=== PATIENT | female | born 1985 | race Caucasian/White ===

== ENCOUNTER 2017-01-17 05:57 | Emergency (ER) | payer MEDICAID ==
[2017-01-17 06:26] VITALS: TEMP 97.5; O2SAT 100
[2017-01-17] MEDS ORDERED: Morphine 4 MG/ML VIAL IVP ONE (06:38)
[2017-01-17] MEDS ORDERED: Sodium Chloride 0.9% 1,000 ML IV STA (06:38)
[2017-01-17] MEDS ORDERED: Morphine 4 MG/ML VIAL ONE (06:44)
[2017-01-17 07:13] LABS: RBC URINE 7 /hpf (0-3); URINE BILIRUBIN NEGATIVE (NEGATIVE); URINE BLOOD SMALL (NEGATIVE); URINE COLOR YELLOW (YELLOW); URINE GLUCOSE (UA) NEG (Normal); URINE KETONE NEGATIVE (NEGATIVE); URINE LEUKOCYTE ESTERASE NEG Leu/uL (Negative); URINE PROTEIN NEGATIVE (NEGATIVE); URINE UROBILINOGEN 0.2-1.0 mg/dL (0.2-1.0); WBC URINE < 1 /hpf (0-5)
[2017-01-17 07:14] LABS: BASO # 0.1 K/uL (0.0-0.2); BASO % 0.6 % (0.0-2.0); EOS # 0.3 K/uL (0.0-0.7); EOS % 1.9 % (0.0-4.0); HEMATOCRIT 39.9 % (34.0-47.0); LYMPH % 14.6 % (20.0-40.0); MEAN CELL VOLUME 98.6 fl (81.0-99.0); MEAN CORPUSCULAR HEMOGLOBIN 32.6 pg (27.0-31.0); MEAN CORPUSCULAR HGB CONC 33.1 g/dL (33.0-37.0); MEAN PLATELET VOLUME 10.2 fl (7.2-11.7); MONO # 0.6 K/uL (0.0-0.8); MONO % 4.2 % (0.0-10.0); NEUT # 10.6 K/uL (1.8-7.0); NEUT % 78.7 % (50.0-75.0); RED CELL DISTRIBUTION WIDTH 12.3 % (11.5-14.5); WHITE BLOOD COUNT 13.4 K/uL (4.8-10.8)
[2017-01-17 07:25] LABS: ALB/GLOB RATIO 1.2 (1.0-2.1); ALKALINE PHOSPHATASE 39 U/L (38-126); ALT/SGPT 25 U/L (9-52); AST/SGOT 18 U/L (14-36); BILIRUBIN,TOTAL 1.1 mg/dl (0.2-1.3); BLOOD UREA NITROGEN 14 mg/dl (7-17); CALCIUM 8.7 mg/dL (8.4-10.2); CARBON DIOXIDE 22 mmol/L (22-30); CHLORIDE 112 mmol/L (98-107); GFR AFRICAN-AMERICAN > 60; GLUCOSE,RANDOM 91 mg/dL (65-105); LIPASE 66 U/L (23-300); SODIUM 140 mmol/l (132-148)
--- NOTE | 2017-01-17 07:25 | ED PDOC ---
HPI: Abdomen Time Seen by Provider: 01/17/17 06:13 Chief Complaint (Nursing): Abdominal Pain Chief Complaint (Provider): Abdominal Pain History Per: Patient History/Exam Limitations: no limitations Onset/Duration Of Symptoms: Days (x1) Outside of [place] travel?: No Current Symptoms Are (Timing): Still Present Associated Symptoms: denies: Nausea, Vomiting, Diarrhea Exacerbating Factors: None Alleviating Factors: None Additional Complaint(s): Martina Torre, a 31 year old female, presents to the ED complaining of abdominal pain that radiates to her back x1 day. The patient reports that she developed an abnormal menstrual cycle associated with severe cramping. She reports that the cramps are the worst she has ever experienced. Denies nausea, vomiting, diarrhea. patient reports that she took ibuprofen around 8pm which offered no relief. PMD: Shaik Ferguson Past Medical History Reviewed: Historical Data, Nursing Documentation, Vital Signs Vital Signs: Last Vital Signs Temp 97.5 F L 01/17/17 06:22 Pulse 81 01/17/17 07:30 Resp 14 01/17/17 07:30 BP 121/75 01/17/17 07:30 Pulse Ox 100 01/17/17 21:25 - Medical History PMH: No Chronic Diseases - Surgical History Other surgeries: Ankle surgery bilaterally - Family History Family History: States: No Known Family Hx - Social History Current smoker - smoking cessation education provided: No Ex-Smoker (has not smoked in the last 12 months): No Alcohol: None Drugs: Denies - Immunization History Hx Tetanus Toxoid Vaccination: No Hx Influenza Vaccination: Yes Hx Pneumococcal Vaccination: No - Home Medications Home Medications: Ambulatory Orders Medication Instructions Recorded APAP/Dm Hydrobrom/Pse HCl/Py 10 ml PO HS #0 liq 05/01/13 [Robitussin Night Relief 240 ml] Famotidine [Pepcid] 1 tab PO HS #20 tab 05/01/13 Ibuprofen [Advil] 600 mg PO Q6H #20 tab 05/01/13 Oxycodone HCl/Acetaminophen 1 tab PO Q4 #5 tab 06/04/14 [Percocet 325 mg-5 mg] Naproxen [Naprosyn] 500 mg PO BID PRN #20 tablet 01/17/17 - Allergies Allergies/Adverse Reactions: Allergies Allergy/AdvReac Type Severity Reaction Status Date / Time No Known Allergies Allergy Verified 01/17/17 06:24 Review of Systems ROS Statement: Except As Marked, All Systems Reviewed And Found Negative Gastrointestinal: Positive for: Abdominal Pain. Negative for: Nausea, Vomiting , Diarrhea Physical Exam - Reviewed Nursing Documentation Reviewed: Yes Vital Signs Reviewed: Yes - Physical Exam Appears: Positive for: Uncomfortable Head Exam: Positive for: ATRAUMATIC, NORMAL INSPECTION, NORMOCEPHALIC Skin: Positive for: Normal Color, Warm, Dry. Negative for: Rash Eye Exam: Positive for: Normal appearance, EOMI, PERRL. Negative for: Nystagmus ENT: Positive for: Normal ENT Inspection. Negative for: Nasal Congestion, Tonsillar Exudate, Tonsillar Swelling Neck: Positive for: Normal, Painless ROM, Supple Cardiovascular/Chest: Positive for: Regular Rate, Rhythm, Chest Non Tender. Negative for: Tachycardia Respiratory: Positive for: Normal Breath Sounds. Negative for: Rales, Rhonchi, Wheezing, Respiratory Distress Gastrointestinal/Abdominal: Positive for: Bowel Sounds, Soft, Tenderness (lower abdominal tenderness.). Negative for: Guarding, Rebound Back: Positive for: Normal Inspection. Negative for: L CVA Tenderness, R CVA Tenderness Extremity: Positive for: Normal ROM. Negative for: Tenderness, Pedal Edema, Deformity, Swelling Neurologic/Psych: Positive for: Alert, Oriented, Gait - Laboratory Results Result Diagrams: 01/17/17 07:00 01/17/17 07:00 - ECG O2 Sat by Pulse Oximetry: 100 (RA) Pulse Ox Interpretation: Normal Medical Decision Making Medical Decision Makin Initial Impression 31 y/o female presenting with abdominal cramping in setting of menstrual cramps Initial Plan: * CMP * Lipase * Upreg * Udip * Morphine 4mg * NS 1000mls IV 1000mls/hr * Urinalysis * US Pelvis/transvaginal * Reevaluation Patient signed out to DR. Camilo at 0700 pending Ultra sound and labs. Scribe Attestation Documented by Diann Wasserman acting as a scribe for Geovanny Coello MD. Provider Attestation All medical record entries made by the Scribe were at my direction and personally dictated by me. I have reviewed the chart and agree that the record accurately reflects my personal performance of the history, physical exam, medical decision making, and the department course for this patient. I have also personally directed, reviewed, and agree with the discharge instructions and disposition. Disposition - Clinical Impression Clinical Impression: Abdominal pain in female - Patient ED Disposition Is Patient to be Admitted: Transfer of Care - Disposition Disposition: Transfer of Care Disposition Time: 07:00 Condition: FAIR Additional Instructions: stop ibuprofen while you are taking Naprosyn prescribed in the ER. See Dr. White within 1-2 weeks after discharge. Prescriptions: Naproxen [Naprosyn] 500 mg PO BID PRN #20 tablet PRN Reason: Pain, Moderate (4-7) Patient Signed Over To: Emmy Camilo Present On Arrival: None
--- NOTE | 2017-01-17 07:29 | ED PDOC ---
- Laboratory Results Result Diagrams: 01/17/17 07:00 01/17/17 07:00 - ECG O2 Sat by Pulse Oximetry: 100 Medical Decision Making Medical Decision Making: received patient from Dr. Coello. Patient has severe abdominal after onset of menses. Morphine given. Labs and US pending. Disposition Doctor Will See Patient In The: Office Counseled Patient/Family Regarding: Diagnosis, Need For Followup - Clinical Impression Clinical Impression: Dysmenorrhea - POA Present On Arrival: None - Disposition Referrals: Gideon Cazares MD [Staff Provider] - Disposition: Routine/Home Disposition Time: 12:27 Condition: STABLE Additional Instructions: stop ibuprofen while you are taking Naprosyn prescribed in the ER. See Dr. White within 1-2 weeks after discharge. Prescriptions: Naproxen [Naprosyn] 500 mg PO BID PRN #20 tablet PRN Reason: Pain, Moderate (4-7) Instructions: Dysmenorrhea (ED) Forms: [employer] (Macedonian)
--- NOTE | 2017-01-17 12:16 | US ---
PROCEDURE: Pelvic ultrasound 01/17/2017. HISTORY: severe abd pain in menstruation COMPARISON: No prior study available for comparison TECHNIQUE: Transabdominal/transvaginal sonographic evaluation of the pelvis performed. FINDINGS: The uterus is anteverted measuring approximate 8.5 x 6.0 x 5.3. . There is an approximately 2.7 x 2.1 x 2.4 cm fibroid along the posterior fundal region. Endometrial stripe measures 3.4 mm. . Tiny amount of fluid within the endometrial canal is felt to be present. . Cervix measures approximately 3 4 the 0 cm. Right ovary measures approximately 3.1 x 3.3 x 2.0 and contains a small cyst measuring 2.3 x 1.5 x 2.4 cm. Right ovary exhibits arterial flow. Left ovary measures approximately 2.1 x 2.7 x 1.9 cm and also contains a small cyst and/or prominent follicle that measures approximately 1.2 cm in greatest dimension. . Left ovary exhibits arterial flow. IMPRESSION: Small uterine fibroid as above. Small right adnexal cyst with prominent left ovarian follicle or small cyst.
[2017-01-17 12:38] VITALS: BP 121/75; PULSE 81; RESP 14
== END 2017-01-17 12:36 | disposition home or self-care (01) ==
LOC: H.ER 05:57
DX: N94.6 Dysmenorrhea, unspecified (principal); D25.9 Leiomyoma of uterus, unspecified
CPT/HCPCS: 76830; 76856; 80053; 81003; 81025; 83690; 85025; 96374; 99283; J1885; J2270; J7040

== ENCOUNTER 2017-06-08 07:26 | Emergency (ER) | payer MEDICAID ==
[2017-06-08 07:30] VITALS: BMI 29.2
--- NOTE | 2017-06-08 09:30 | ED PDOC ---
HPI: Abdomen Time Seen by Provider: 06/08/17 07:40 Chief Complaint (Nursing): Abdominal Pain Chief Complaint (Provider): Abdominal pain History/Exam Limitations: no limitations Onset/Duration Of Symptoms: Days Current Symptoms Are (Timing): Still Present Location Of Pain/Discomfort: Suprapubic Quality Of Discomfort: Cramping Additional Complaint(s): Martina Torre is a 31 year old female, with a past medical history of fibroids and ovarian cysts, who presents to the emergency department complaining of crampy abdominal pain. Patient states she is just having severe cramping pain from her menstrual cycle. She also reports that x3 months ago she started taking Percocet every day due to an ankle surgery, patient stopped taking Percocet x3 days ago and believes to be having withdrawal symptoms. She denies any other medical complaints. PMD: None provided. Past Medical History Reviewed: Historical Data, Nursing Documentation, Vital Signs Vital Signs: Last Vital Signs Temp 97 F L 06/08/17 10:54 Pulse 78 06/08/17 10:54 Resp 19 06/08/17 10:54 BP 120/78 06/08/17 10:54 Pulse Ox 98 06/08/17 10:54 - Medical History PMH: No Chronic Diseases - Surgical History Surgical History: No Surg Hx - Family History Family History: States: No Known Family Hx - Social History Current smoker - smoking cessation education provided: No Alcohol: None Drugs: Denies - Immunization History Hx Tetanus Toxoid Vaccination: No Hx Influenza Vaccination: Yes Hx Pneumococcal Vaccination: No - Home Medications Home Medications: Ambulatory Orders Medication Instructions Recorded No Known Home Med 06/09/17 - Allergies Allergies/Adverse Reactions: Allergies Allergy/AdvReac Type Severity Reaction Status Date / Time No Known Allergies Allergy Verified 01/17/17 06:24 Review of Systems ROS Statement: Except As Marked, All Systems Reviewed And Found Negative Gastrointestinal: Positive for: Abdominal Pain (cramps) Physical Exam - Reviewed Nursing Documentation Reviewed: Yes Vital Signs Reviewed: Yes - Physical Exam Appears: Positive for: Well, Non-toxic, No Acute Distress Head Exam: Positive for: ATRAUMATIC, NORMOCEPHALIC Skin: Positive for: Normal Color, Warm, Dry Eye Exam: Positive for: Normal appearance, EOMI, PERRL Neck: Positive for: Painless ROM, Supple Cardiovascular/Chest: Positive for: Regular Rate, Rhythm. Negative for: Murmur Respiratory: Positive for: Normal Breath Sounds. Negative for: Respiratory Distress Gastrointestinal/Abdominal: Positive for: Tenderness (mild suprapubic) Back: Positive for: Normal Inspection. Negative for: L CVA Tenderness, R CVA Tenderness, Vertebral Tenderness Extremity: Positive for: Normal ROM (all extremities). Negative for: Deformity , Swelling Neurologic/Psych: Positive for: Alert, Oriented - ECG O2 Sat by Pulse Oximetry: 100 (RA) Pulse Ox Interpretation: Normal Medical Decision Making Medical Decision Making: Initial Impression: abdominal pain Initial Plan: --Drug screen, urine --Urine dipstick --Urine --Toradol 30 mg IM --Pelvis/Transvag US [US] --Reevaluation Accession No. : [id number] Patient Name / ID : HARISH SALAZAR / [id number] Exam Date : 06/08/2017 09:32:11 ( Approved ) Study Comment : Sex / Age : F / 31Y Creator : Leonel Russ MD Dictator : Leonel Russ MD Lead Neurodiagnostic Technologist : Kiln Charger : Leonel Russ MD Approver2 : Report Date : 06/08/2017 10:42:59 My Comment : HISTORY: Suprapubic pain, h/o fibroids. Menstrual status: LMP 06/08/2017 COMPARISON: 01/17/2017 pelvic ultrasound TECHNIQUE: Transvaginal only. Real -time technique with 2D, duplex and color Doppler FINDINGS: UTERUS: Measures 4.8 x 6.7 x 8 cm. Normal in size and appearance. Fundal fibroid (Midline) 2.7 x 3.1 cm. Anterior fibroid to the left midline 1.5 x 1.5 cm ENDOMETRIUM: Measures 2.5 mm in diameter. No ultrasound findings to suggest gestational sac, fluid, debris, mass or polyp or other pathologic process within the endometrium. CERVIX: No cervical abnormality identified. RIGHT OVARY: Measures 1.8 x 2.5 x 3.6 cm. No solid mass. Normal flow. Multiple subcentimeter follicles. LEFT OVARY: Measures 2.5 x 3.1 x 2.4 cm. No solid mass. Normal flow. Multiple subcentimeter follicles. FREE FLUID: Trace free fluid identified in the pelvis/cul de sac. OTHER FINDINGS: None. IMPRESSION: No acute findings related to/accounting for the clinical presentation. Two small uterine fibroids. No significant change compared prior studies. Scribe Attestation: Documented by Say Richardson, acting as a scribe for Ashley Marin MD Provider Scribe Attestation: All medical record entries made by the Scribe were at my direction and personally dictated by me. I have reviewed the chart and agree that the record accurately reflects my personal performance of the history, physical exam, medical decision making, and the department course for this patient. I have also personally directed, reviewed, and agree with the discharge instructions and disposition. Disposition - Clinical Impression Clinical Impression: Menstrual cramp - Disposition Referrals: [facility] [Outside] Disposition: Routine/Home Disposition Time: 10:34 Condition: STABLE Instructions: Menstrual Cramps Forms: [employer] (Rwandan)
[2017-06-08 09:43] LABS: BARBITURATES, UR NEGATIVE (NEGATIVE); BENZODIAZEPINES, UR NEGATIVE (NEGATIVE); OPIATES, UR POSITIVE (NEGATIVE); PHENCYCLIDINE, UR NEGATIVE (NEGATIVE)
--- NOTE | 2017-06-08 10:44 | US ---
HISTORY: Suprapubic pain, h/o fibroids. Menstrual status: LMP 06/08/2017 COMPARISON: 01/17/2017 pelvic ultrasound TECHNIQUE: Transvaginal only. Real -time technique with 2D, duplex and color Doppler FINDINGS: UTERUS: Measures 4.8 x 6.7 x 8 cm. Normal in size and appearance. Fundal fibroid (Midline) 2.7 x 3.1 cm. Anterior fibroid to the left midline 1.5 x 1.5 cm ENDOMETRIUM: Measures 2.5 mm in diameter. No ultrasound findings to suggest gestational sac, fluid, debris, mass or polyp or other pathologic process within the endometrium. CERVIX: No cervical abnormality identified. RIGHT OVARY: Measures 1.8 x 2.5 x 3.6 cm. No solid mass. Normal flow. Multiple subcentimeter follicles. LEFT OVARY: Measures 2.5 x 3.1 x 2.4 cm. No solid mass. Normal flow. Multiple subcentimeter follicles. FREE FLUID: Trace free fluid identified in the pelvis/cul de sac. OTHER FINDINGS: None. IMPRESSION: No acute findings related to/accounting for the clinical presentation. Two small uterine fibroids. No significant change compared prior studies.
[2017-06-08 10:56] VITALS: BP 120/78; PULSE 78; RESP 19; TEMP 97
[2017-06-15 16:37] VITALS: O2SAT 100
== END 2017-06-08 10:57 | disposition home or self-care (01) ==
LOC: H.ER 07:26
DX: N94.6 Dysmenorrhea, unspecified (principal); D25.9 Leiomyoma of uterus, unspecified
CPT/HCPCS: 76830; 80324; 80345; 80346; 80349; 80353; 80358; 80361; 81025; 83992; 96372; 99283; J1885

== ENCOUNTER 2017-08-04 07:35 | Emergency (ER) | payer MEDICAID ==
[2017-08-04 07:40] VITALS: TEMP 98
[2017-08-04 07:41] VITALS: BMI 25.0
[2017-08-04] MEDS ORDERED: Sodium Chloride 0.9% 1,000 ML IV STA (07:50)
--- NOTE | 2017-08-04 07:56 | ED PDOC ---
HPI: Abdomen Time Seen by Provider: 08/04/17 07:47 Chief Complaint (Provider): Abdominal Cramping History Per: Patient History/Exam Limitations: no limitations Onset/Duration Of Symptoms: Hrs Outside of [place] travel?: No Current Symptoms Are (Timing): Still Present Quality Of Discomfort: Cramping Associated Symptoms: denies: Nausea, Vomiting, Diarrhea, Urinary Symptoms Exacerbating Factors: None Alleviating Factors: None Additional Complaint(s): 31 year old female presents to the emergency department complaining of abdominal cramping that radiates to her back associated with nausea and vomiting which began this morning. Denies diarrhea and urinary symptoms. She further reports that she stated her menses this morning and usually has severe pain during periods. Abnormal Vaginal Bleeding: No Last Menstral Period: 08/04/2017 Past Medical History Reviewed: Historical Data, Nursing Documentation, Vital Signs Vital Signs: Last Vital Signs Temp 98 F 08/04/17 07:40 Pulse 64 08/04/17 07:40 Resp 17 08/04/17 08:24 BP 145/83 08/04/17 07:40 Pulse Ox 98 08/04/17 08:01 - Medical History PMH: No Chronic Diseases - Surgical History Surgical History: No Surg Hx - Family History Family History: States: Unknown Family Hx - Immunization History Hx Tetanus Toxoid Vaccination: No Hx Influenza Vaccination: Yes Hx Pneumococcal Vaccination: No - Home Medications Home Medications: Ambulatory Orders Medication Instructions Recorded Naproxen [Naprosyn] 500 mg PO Q12H #20 tab 08/04/17 Ondansetron [Zofran] 4 mg PO Q8H #10 tab 08/04/17 - Allergies Allergies/Adverse Reactions: Allergies Allergy/AdvReac Type Severity Reaction Status Date / Time No Known Allergies Allergy Verified 08/04/17 07:59 Review of Systems ROS Statement: Except As Marked, All Systems Reviewed And Found Negative Gastrointestinal: Positive for: Nausea, Vomiting, Abdominal Pain (cramping) Genitourinary Female: Negative for: Vaginal Discharge, Vaginal Bleeding Physical Exam - Reviewed Nursing Documentation Reviewed: Yes Vital Signs Reviewed: Yes - Physical Exam Appears: Positive for: Non-toxic, No Acute Distress Head Exam: Positive for: ATRAUMATIC, NORMAL INSPECTION, NORMOCEPHALIC Skin: Positive for: Normal Color, Warm, Dry. Negative for: Rash Eye Exam: Positive for: Normal appearance, EOMI, PERRL. Negative for: Nystagmus ENT: Positive for: Normal ENT Inspection. Negative for: Nasal Congestion, Tonsillar Exudate, Tonsillar Swelling Neck: Positive for: Normal, Painless ROM, Supple Cardiovascular/Chest: Positive for: Regular Rate, Rhythm, Chest Non Tender. Negative for: Tachycardia Respiratory: Positive for: Normal Breath Sounds. Negative for: Rales, Rhonchi, Wheezing, Respiratory Distress Gastrointestinal/Abdominal: Positive for: Bowel Sounds, Soft, Tenderness (mild tenderness to lower quadrant bilaterally). Negative for: Mass, Guarding, Rebound Back: Positive for: Normal Inspection. Negative for: L CVA Tenderness, R CVA Tenderness Extremity: Positive for: Normal ROM. Negative for: Tenderness, Calf Tenderness , Deformity, Swelling Neurologic/Psych: Positive for: Alert, Oriented, Gait. Negative for: Motor/ Sensory Deficits - Laboratory Results Result Diagrams: 08/04/17 08:05 08/04/17 08:05 - ECG O2 Sat by Pulse Oximetry: 98 (RA) Pulse Ox Interpretation: Normal - Progress Re-evaluation Time: 10:05 Condition: Improved Medical Decision Making Medical Decision Makin Initial Impression 31 year old female presenting with abdominal cramping Initial Plan: * CMP * Upreg * Udip * CBC * NS 1000 mls IV 1000 mls/hr * Toradol 30mg IVP * Zofran 4mg IV * Reevaluation Documented by Diann Wasserman acting as a scribe for Gideon Muñiz MD. All medical record entries made by the Scribe were at my direction and personally dictated by me. I have reviewed the chart and agree that the record accurately reflects my personal performance of the history, physical exam, medical decision making, and the department course for this patient. I have also personally directed, reviewed, and agree with the discharge instructions and disposition. Disposition - Clinical Impression Clinical Impression: Dysmenorrhea - Patient ED Disposition Is Patient to be Admitted: No Counseled Patient/Family Regarding: Diagnosis, Need For Followup, Rx Given - [facility]position [facility] Disposition: Routine/Home Disposition Time: 10:06 Condition: FAIR Prescriptions: Naproxen [Naprosyn] 500 mg PO Q12H #20 tab Ondansetron [Zofran] 4 mg PO Q8H #10 tab Instructions: Menstrual Cramps (DC)
[2017-08-04 08:14] LABS: BASO # 0.1 K/uL (0.0-0.2); BASO % 0.4 % (0.0-2.0); EOS # 0.3 K/uL (0.0-0.7); EOS % 1.8 % (0.0-4.0); HEMOGLOBIN 13.9 g/dL (12.0-16.0); LYMPH # 2.6 K/uL (1.0-4.3); MEAN CELL VOLUME 97.3 fl (81.0-99.0); MEAN CORPUSCULAR HEMOGLOBIN 33.2 pg (27.0-31.0); MEAN CORPUSCULAR HGB CONC 34.1 g/dL (33.0-37.0); MEAN PLATELET VOLUME 9.2 fl (7.2-11.7); MONO # 0.7 K/uL (0.0-0.8); MONO % 4.7 % (0.0-10.0); NEUT % 75.1 % (50.0-75.0); RBC 4.18 Mil/uL (3.80-5.20); RED CELL DISTRIBUTION WIDTH 12.5 % (11.5-14.5); WHITE BLOOD COUNT 14.6 K/uL (4.8-10.8)
[2017-08-04 08:25] LABS: ALB/GLOB RATIO 1.1 (1.0-2.1); ALBUMIN 4.3 g/dL (3.5-5.0); ALT/SGPT 23 U/L (9-52); AST/SGOT 23 U/L (14-36); BLOOD UREA NITROGEN 14 mg/dl (7-17); CALCIUM 9.3 mg/dL (8.4-10.2); GFR AFRICAN-AMERICAN > 60; GFR NON-AFRICAN AMERICAN > 60
[2017-08-04] MEDS ORDERED: Potassium Chloride 20 mEq ER Tab PO ONE ×2 (09:24→09:30)
[2017-08-04 10:58] VITALS: BP 118/74; PULSE 60; RESP 14; O2SAT 99
== END 2017-08-04 10:37 | disposition home or self-care (01) ==
LOC: H.ER 07:35
DX: N94.6 Dysmenorrhea, unspecified (principal)
CPT/HCPCS: 80053; 85025; 96374; 96375; 99283; J1885; J2270; J2405; J7030

== ENCOUNTER 2018-03-16 05:26 | Emergency (ER) | payer MEDICAID ==
[2018-03-16 05:26] VITALS: BMI 25.0
[2018-03-16 05:45] VITALS: RESP 16
[2018-03-16] MEDS ORDERED: Sodium Chloride 0.9% 1,000 ML IV STA (05:56)
[2018-03-16 06:21] LABS: BASO % 0.4 % (0.0-2.0); EOS # 0.2 K/uL (0.0-0.7); EOS % 1.3 % (0.0-4.0); HEMOGLOBIN 13.1 g/dL (12.0-16.0); LYMPH # 1.9 K/uL (1.0-4.3); LYMPH % 16.3 % (20.0-40.0); MEAN CELL VOLUME 98.9 fl (81.0-99.0); MEAN CORPUSCULAR HEMOGLOBIN 33.7 pg (27.0-31.0); MEAN PLATELET VOLUME 8.7 fl (7.2-11.7); MONO # 0.5 K/uL (0.0-0.8); MONO % 4.3 % (0.0-10.0); NEUT # 8.9 K/uL (1.8-7.0); NEUT % 77.7 % (50.0-75.0); RBC 3.9 Mil/uL (3.80-5.20); RED CELL DISTRIBUTION WIDTH 13.2 % (11.5-14.5); WHITE BLOOD COUNT 11.4 K/uL (4.8-10.8)
--- NOTE | 2018-03-16 06:28 | ED PDOC ---
HPI: Abdomen Time Seen by Provider: 03/16/18 05:53 Chief Complaint (Nursing): Abdominal Pain Chief Complaint (Provider): Abdominal Pain History Per: Patient History/Exam Limitations: no limitations Onset/Duration Of Symptoms: Days (x2) Location Of Pain/Discomfort: Suprapubic Associated Symptoms: Vomiting. denies: Fever, Diarrhea, Urinary Symptoms Additional Complaint(s): 32 years old female presents to ER for evaluation of suprapubic abdominal pain onset 2 days ago. Patient reports she had similar episodes of abdominal pain in the past 4 months when she is on her period. She reports associated vomiting and denies fever, diarrhea, pain with urinating or taking any medicine for pain. PMD: Saeid Thacker Past Medical History Reviewed: Historical Data, Nursing Documentation, Vital Signs Vital Signs: Last Vital Signs Temp 98.2 F 03/16/18 05:35 Pulse 60 03/16/18 05:35 Resp 16 03/16/18 05:35 BP 148/78 03/16/18 05:35 Pulse Ox 100 03/16/18 05:35 - Medical History Other PMH: fibroids and ovarian cysts - Surgical History Surgical History: No Surg Hx - Family History Family History: States: Unknown Family Hx - Social History Current smoker - smoking cessation education provided: No Alcohol: None Drugs: Denies - Immunization History Hx Tetanus Toxoid Vaccination: No Hx Influenza Vaccination: Yes Hx Pneumococcal Vaccination: No - Home Medications Home Medications: Ambulatory Orders Medication Instructions Recorded Naproxen [Naprosyn] 500 mg PO Q12H #20 tab 08/04/17 Ondansetron [Zofran] 4 mg PO Q8H #10 tab 03/16/18 RX: Naproxen 500 mg PO BID #20 tab 03/16/18 - Allergies Allergies/Adverse Reactions: Allergies Allergy/AdvReac Type Severity Reaction Status Date / Time No Known Allergies Allergy Verified 08/04/17 07:59 Review of Systems ROS Statement: Except As Marked, All Systems Reviewed And Found Negative Constitutional: Negative for: Fever Gastrointestinal: Positive for: Vomiting, Abdominal Pain. Negative for: Diarrhea Physical Exam - Reviewed Nursing Documentation Reviewed: Yes Vital Signs Reviewed: Yes - Physical Exam Appears: Positive for: Uncomfortable Head Exam: Positive for: ATRAUMATIC, NORMOCEPHALIC Skin: Positive for: Normal Color, Warm, Dry Cardiovascular/Chest: Positive for: Regular Rate, Rhythm. Negative for: Murmur Respiratory: Positive for: Normal Breath Sounds. Negative for: Wheezing Gastrointestinal/Abdominal: Positive for: Bowel Sounds, Soft. Negative for: Tenderness, Guarding, Rebound Neurologic/Psych: Positive for: Alert, Oriented (x3) - Laboratory Results Result Diagrams: 03/16/18 06:14 03/16/18 06:14 - ECG O2 Sat by Pulse Oximetry: 100 (RA) Pulse Ox Interpretation: Normal Medical Decision Making Medical Decision Making: Time: 554 Initial Impression: abdominal pain. Differential includes but not limited to ovarian torsion and menstrual period. Initial Plan: --CMP --Lipase --CBC --Toradol 30 mg IV --Urine C&S --Urinalysis --Abdomen US to r/o ovarian torsion 0700 pt asking for morphine, told her that we are starting with toradol as per records from prior ER visit pt has history of percocet abuse Patient signed out to Dr. Cross, pending labs, urine and US. Scribe Attestation: Documented by Francia Coley, acting as a scribe for Jose Juan Morrison MD. Provider Scribe Attestation: All medical record entries made by the Scribe were at my direction and personally dictated by me. I have reviewed the chart and agree that the record accurately reflects my personal performance of the history, physical exam, medical decision making, and the department course for this patient. I have also personally directed, reviewed, and agree with the discharge instructions and disposition. Disposition - Clinical Impression Clinical Impression: Fibroid, Pelvic pain, Nausea & vomiting - Patient ED Disposition Is Patient to be Admitted: Transfer of Care - Disposition Referrals: [facility] [Outside] Disposition: Transfer of Care Disposition Time: 07:00 Condition: GOOD Additional Instructions: MAREI MOREIRA, thank you for letting us take care of you today. Your provider was Cassie Yuan MD and you were treated for ABD PAIN,VOMITING. The emergency medical care you received today was directed at your acute symptoms. If you were prescribed any medication, please fill it and take as directed. It may take several days for your symptoms to resolve. Return to the Emergency Department if your symptoms worsen, do not improve, or if you have any other problems. Please contact your doctor or call one of the physicians/clinics you have been referred to that are listed on the Patient Visit Information form that is i ncluded in your discharge packet. Bring any paperwork you were given at discharge with you along with any medications you are taking to your follow up visit. Our treatment cannot replace ongoing medical care by a primary care provider outside of the emergency department. Thank you for allowing the [facility] team to be part of your care today. If you had an X-Ray or CT scan: A Radiologist will review the ED reading if any change in treatment is needed we will contact you. If you had a blood, urine, or wound culture: It will take several days for the results, if any change in treatment is needed we will contact you. If you had an STI test: It will take 48 hours for the results. Please call after 1 week if you have not heard back. Prescriptions: RX: Naproxen 500 mg PO BID #20 tab Ondansetron [Zofran] 4 mg PO Q8H #10 tab Instructions: Nausea and Vomiting, Adult (DC), Acute Pelvic Pain Forms: [facility] ED School/Work Excuse Patient Signed Over To: Cassie Yuan (pending labs, urine and US)
[2018-03-16 06:31] LABS: ALB/GLOB RATIO 1.3 (1.0-2.1); ALBUMIN 4.2 g/dL (3.5-5.0); ALT/SGPT 20 U/L (9-52); AST/SGOT 22 U/L (14-36); BLOOD UREA NITROGEN 16 mg/dl (7-17); CALCIUM 9.3 mg/dL (8.4-10.2); GFR NON-AFRICAN AMERICAN > 60; LIPASE 67 U/L (23-300)
--- NOTE | 2018-03-16 07:21 | ED PDOC ---
- Laboratory Results Result Diagrams: 03/16/18 06:14 03/16/18 06:14 Lab Results: Total Bilirubin 0.7 mg/dl (0.2-1.3) 03/16/18 06:14 AST 22 U/L (14-36) 03/16/18 06:14 ALT 20 U/L (9-52) 03/16/18 06:14 Alkaline Phosphatase 40 U/L (38-126) 03/16/18 06:14 Total Protein 7.4 G/DL (6.3-8.2) 03/16/18 06:14 Albumin 4.2 g/dL (3.5-5.0) 03/16/18 06:14 Globulin 3.3 gm/dL (2.2-3.9) 03/16/18 06:14 Albumin/Globulin Ratio 1.3 (1.0-2.1) 03/16/18 06:14 Lipase 67 U/L (23-300) 03/16/18 06:14 - ECG O2 Sat by Pulse Oximetry: 100 (RA) Pulse Ox Interpretation: Normal - Progress Re-evaluation Time: 12:00 Condition: Re-examined, Improved Medical Decision Making Medical Decision Making: Time: [address] Yuan by Dr. Morrison, pending US and reevaluation. Time: 0811 Ultrasound pelvis, transvaginal. Indication: Abdominal pain. Technique: Transvaginal ultrasound images were obtained. Findings: The uterus measures 10.3 x7.1x6.2 cm. Retroverted uterus. Multiple uterine fibroids are noted. Submucosal fibroid is seen measuring 2.6 x 3.6 x3.6 cm. Posterior intramural superior uterine body fibroid is noted measuring 0.9 cm. Another posterior intramural superior and adjacent uterine body fibroid is noted measuring 1.5x2.5 cm. The right ovary measuring 2.5x2.6x2.1 cm. Normal left ovary measuring 2.1x3.4x1.9 cm. Normal bilateral ovarian flow. Mild amount of free pelvic fluid is noted. Impression: Uterine fibroids. Mild amount of free pelvic fluid. No evidence of ovarian torsion. Time: 1115 PROCEDURE: CT Abdomen and Pelvis with contrast HISTORY:lower abd pain COMPARISON: Transvaginal pelvic ultrasound 03/16/2018 as well. TECHNIQUE: Following the intravenous administration of iodinated contrast material, a CT examination of the abdomen and pelvis was performed from the domes of the diaphragms to the symphysis pubis with reformatted datasets provided in axial, sagittal and coronal planes. Oral contrast was not administered as per referring physician request.Contrast dose: Omnipaque 300, 95 cc Radiation dose: Total exam DLP = 557.71 mGy-cm. This CT exam was performed using one or more of the following dose reduction techniques: Automated exposure control, adjustment of the mA and/or kV according to patient size, and/or use of iterative reconstruction technique. FINDINGS: LOWER THORAX: Unremarkable. LIVER: Unremarkable. No gross lesion or ductal dilatation. GALLBLADDER AND BILE DUCTS: Unremarkable. PANCREAS: Unremarkable. No gross lesion or ductal dilatation. SPLEEN: Unremarkable. ADRENALS: Unremarkable. No mass. KIDNEYS AND URETERS: Unremarkable. No hydronephrosis. No solid mass. VASCULATURE: Unremarkable. No aortic aneurysm. No aortic atherosclerotic calcification or mural plaque present. BOWEL: Evaluation of the gastrointestinal tract is limited due to the lack of oral contrast administration. Gastrointestinal tract appears unremarkable as imaged with limited pelvic fluid noted of uncertain origin. Consider possible adnexal cyst rupture though none are appreciated at this time. APPENDIX: Normal appendix. PERITONEUM: Unremarkable. No free fluid. No free air. LYMPH NODES: No significant lymphadenopathy. BLADDER: Unremarkable. REPRODUCTIVE: Multiple uterine fibroids identified. BONES: Old here for healed fracture or deformity of the distal sacrum/proximal coccyx with the coccyx angled essentially 90 degrees relative to the sacrum. OTHER FINDINGS: None. IMPRESSION: 1. No obstructive uropathy, bowel obstruction, prominent ascites, abscess or free intra peritoneal gas collection identified. 2. Trace fluid is seen in the pelvis of uncertain origin. Adnexal compartments appear unremarkable. Multiple uterine fibroids are identified. Concordant with preliminary ultrasonography of the pelvis 03/16/2018. Amanda Attestation: Documented by Mariam Still acting as a scribe for Cassie Yuan MD Provider Scribe Attestation: All medical record entries made by the Scribe were at my direction and personally dictated by me. I have reviewed the chart and agree that the record accurately reflects my personal performance of the history, physical exam, medical decision making, and the department course for this patient. I have also personally directed, reviewed, and agree with the discharge instructions and disposition. Disposition Doctor Will See Patient In The: Office Counseled Patient/Family Regarding: Studies Performed, Diagnosis, Need For Followup - Clinical Impression Clinical Impression: Fibroid, Pelvic pain, Nausea & vomiting - POA Present On Arrival: None - Disposition Referrals: [facility] [Outside] Disposition: Routine/Home Disposition Time: 11:00 Condition: GOOD Additional Instructions: MARIE MOREIRA, thank you for letting us take care of you today. Your provider was Cassie Yuan MD and you were treated for ABD PAIN,VOMITING. The emergency medical care you received today was directed at your acute symptoms. If you were prescribed any medication, please fill it and take as directed. It may take several days for your symptoms to resolve. Return to the Emergency Department if your symptoms worsen, do not improve, or if you have any other problems. Please contact your doctor or call one of the physicians/clinics you have been referred to that are listed on the Patient Visit Information form that is included in your discharge packet. Bring any paperwork you were given at discharge with you along with any medications you are taking to your follow up visit. Our treatment cannot replace ongoing medical care by a primary care provider outside of the emergency department. Thank you for allowing the [facility] team to be part of your care today. If you had an X-Ray or CT scan: A Radiologist will review the ED reading if any change in treatment is needed we will contact you. If you had a blood, urine, or wound culture: It will take several days for the results, if any change in treatment is needed we will contact you. If you had an STI test: It will take 48 hours for the results. Please call after 1 week if you have not heard back. Prescriptions: RX: Naproxen 500 mg PO BID #20 tab Ondansetron [Zofran] 4 mg PO Q8H #10 tab Instructions: Nausea and Vomiting, Adult (DC), Acute Pelvic Pain Forms: [facility] ED School/Work Excuse
[2018-03-16 08:02] LABS: SQUAMOUS EPITHIAL < 1 /hpf (0-5); URINE BACTERIA RARE (<OCC); URINE BILIRUBIN NEGATIVE (NEGATIVE); URINE BLOOD MODERATE (NEGATIVE); URINE CLARITY SLIGHTY-CLOUDY (Clear); URINE COLOR YELLOW (YELLOW); URINE GLUCOSE (UA) NEG (NEGATIVE); URINE LEUKOCYTE ESTERASE NEG Leu/uL (Negative); URINE PROTEIN NEGATIVE (NEGATIVE); URINE UROBILINOGEN 0.2-1.0 mg/dL (0.2-1.0)
[2018-03-16 08:47] VITALS: BP 110/60; PULSE 70; TEMP 98.1
[2018-03-16] MEDS ORDERED: Iohexol 300 100 ML IJ ONE (09:40)
[2018-03-16] MEDS ORDERED: Sodium Chloride 0.9% 50 ML IV ONE (09:40)
--- NOTE | 2018-03-16 11:19 | CT ---
Date of service: 03/16/2018 PROCEDURE: CT Abdomen and Pelvis with contrast HISTORY: lower abd pain COMPARISON: Transvaginal pelvic ultrasound 03/16/2018 as well. TECHNIQUE: Following the intravenous administration of iodinated contrast material, a CT examination of the abdomen and pelvis was performed from the domes of the diaphragms to the symphysis pubis with reformatted datasets provided in axial, sagittal and coronal planes. Oral contrast was not administered as per referring physician request.Contrast dose: Omnipaque 300, 95 cc Radiation dose: Total exam DLP = 557.71 mGy-cm. This CT exam was performed using one or more of the following dose reduction techniques: Automated exposure control, adjustment of the mA and/or kV according to patient size, and/or use of iterative reconstruction technique. FINDINGS: LOWER THORAX: Unremarkable. LIVER: Unremarkable. No gross lesion or ductal dilatation. GALLBLADDER AND BILE DUCTS: Unremarkable. PANCREAS: Unremarkable. No gross lesion or ductal dilatation. SPLEEN: Unremarkable. ADRENALS: Unremarkable. No mass. KIDNEYS AND URETERS: Unremarkable. No hydronephrosis. No solid mass. VASCULATURE: Unremarkable. No aortic aneurysm. No aortic atherosclerotic calcification or mural plaque present. BOWEL: Evaluation of the gastrointestinal tract is limited due to the lack of oral contrast administration. Gastrointestinal tract appears unremarkable as imaged with limited pelvic fluid noted of uncertain origin. Consider possible adnexal cyst rupture though none are appreciated at this time. APPENDIX: Normal appendix. PERITONEUM: Unremarkable. No free fluid. No free air. LYMPH NODES: No significant lymphadenopathy. BLADDER: Unremarkable. REPRODUCTIVE: Multiple uterine fibroids identified. BONES: Old here for healed fracture or deformity of the distal sacrum/proximal coccyx with the coccyx angled essentially 90 degrees relative to the sacrum. OTHER FINDINGS: None. IMPRESSION: 1. No obstructive uropathy, bowel obstruction, prominent ascites, abscess or free intra peritoneal gas collection identified. 2. Trace fluid is seen in the pelvis of uncertain origin. Adnexal compartments appear unremarkable. Multiple uterine fibroids are identified. Concordant with preliminary ultrasonography of the pelvis 03/16/2018.
[2018-03-16 11:23] VITALS: O2SAT 100
--- NOTE | 2018-03-16 11:33 | US ---
Date of service: 03/16/2018 HISTORY: pain, rule out torsion COMPARISON: Transvaginal pelvic ultrasound 06/08/2017. TECHNIQUE: Transvaginal pelvic ultrasound was performed with longitudinal and transverse images submitted for interpretation. FINDINGS: UTERUS: Measures 10.3 x 7.0 x 6.1 cm. Uterus is retroverted with heterogeneous echotexture throughout the myometrium. Three uterine fibroids are identified. At the anterior and posterior high fundus, there is a hypoechoic but heterogeneous mass which is relatively well circumscribed bridging the gap between the cirrhosis and the submucous space compatible with fibroid measuring 2.9 x 3.6 x 3.6 cm. An additional smaller fibroid is seen in intramural at the high posterior fundus measuring 0.9 x 0.9 x 0.9 cm with a 3rd fibroid identified at the mid posterior fundus also intramural in location measuring 1.5 x 1.2 x 1.4 cm. ENDOMETRIUM: Measures 6.3 mm in diameter. Unremarkable. CERVIX: No cervical abnormality identified. RIGHT OVARY: Measures 2.5 x 2.6 x 2.1 cm. No solid mass. Normal flow. LEFT OVARY: Measures 3.1 x 3.4 x 1.9 cm. No solid mass. Normal flow. FREE FLUID: No significant free fluid noted. OTHER FINDINGS: None. IMPRESSION: 1. [id number] enlarged fibroid uterus as discussed above. One additional fibroid is identified in the interval, under 1 cm greatest dimension overall with prior to reiterated. The largest of the 2 prior fibroids is increased in size up to 3.6 cm compared to 2.7 cm previously.. 2. Unremarkable bilateral ovaries. 3. Unremarkable appearing endometrium exclusive of largest fibroid described above at the
== END 2018-03-16 11:36 | disposition home or self-care (01) ==
LOC: H.ER 05:26
DX: D25.9 Leiomyoma of uterus, unspecified (principal); R11.2 Nausea with vomiting, unspecified; R10.2 Pelvic and perineal pain
CPT/HCPCS: 74177; 76830; 80053; 81003; 81025; 83690; 85025; 87086; 96374; 99284; J1885; J2765; J7030; Q9967